=== PATIENT | male | born 1990 | race African-American/Black ===

== ENCOUNTER 2018-11-28 04:34 | Emergency (ER) | payer OTHER ==
--- NOTE | 2018-11-28 04:52 | ER Document Report ---
Addendum entered and electronically signed by GINGER ELLIOTT MD 11/28/18 11:03: Discharge - Discharge Clinical Impression: Agitation, Depressed Condition: Stable Disposition: HOME, SELF-CARE Additional Instructions: You have been evaluated and assessed at [facility] Emergency Department by both the medical and behavioral health teams after presenting for and are now deemed appropriate for discharge. While in the ED, you received an initial medical screening, lab work, EKG, medications, direct staff observation, clinical eval uation, physician assessment, and outpatient resources. You were cleared from both services and record review revealed a history of depression and treatment non-compliance for your symptoms. You are encouraged to develop coping skills through regular therapy and maintain compliance with your prescribed medication. You are scheduled for therapy at [facility] on 11/30/18 @1500 and medication management on 12/10/18. Mobile crisis resources were provided to you for when these situations arise. Depression Your evaluation reveals that you have mental depression. While symptoms may be vague, they often include disturbance of sleep, fatigue, loss of appetite, and general loss of interest in life. While depression may be a side effect of drugs, or a reaction to a major change in your life, many cases have no known cause. If depression is acute, and related to a major loss in your life, you can expect it to clear completely with time. If you have been depressed a long time, are prone to repeated bouts of depression or low mood, or have been thinking of suicide, get help. Depression can be treated with anti-depressant medication and counselling. Long-term depression will often take a few weeks to clear, even with appropriate medication. Follow-up care is important. Contact your physician, the hospital emergency center, crisis line, or your counsellor if you are losing control or having self-destructive thoughts. Antidepressants Antidepressant medication is used to treat severe depression, particularly when accompanied by sleep disturbance and weight loss. The medication is often helpful for other problems such as bed-wetting, anorexia, and migraine headaches. The full benefit of this medication may not be apparent for a few weeks. Be patient. If there is no improvement after three weeks, an increase in dosage or change in type of medicine will probably help you. This medicine may cause drowsiness, especially with the first dose. Do not operate machinery or drive until all side effects have resolved. Do not combine with alcohol. Other common side effects include dry mouth and eyes. In older persons, antidepressants can occasionally cause urinary retention, constipation, and trouble focusing the eyes. Counseling Services It has been recommended that you seek professional counseling to assist you with the stresses that you are experiencing. Most people at some time in their lives experience personal problems with which they need help. Pride and feeling that one can't be helped keep a lot of people from the benefits of counseling. DEPRESSION: Your evaluation reveals that you have mental depression. While symptoms may be vague, they often include disturbance of sleep, fatigue, loss of appetite, and general loss of interest in life. While depression may be a side effect of drugs, or a reaction to a major change in your life, many cases have no known cause. If depression is acute, and related to a major loss in your life, you can expect it to clear completely with time. If you have been depressed a long time, are prone to repeated bouts of depression or low mood, or have been thinking of suicide, get help. Depression can be treated with anti-depressant medication and counselling. Long-term depression will often take a few weeks to clear, even with appropriate medication. Follow-up care is important. SUICIDAL IDEATION: Suicidal ideation is a common medical term for thoughts about suicide, which may be as detailed as a formulated plan, without the suicidal act itself. Although most people who undergo suicidal ideation do not commit suicide, some go on to make suicide attempts. The range of suicidal ideation varies greatly from fleeting to detailed planning, role playing, and unsuccessful attempts. While thoughts about suicide are common, most people do not carry out serious actions to commit suicide. Based upon your evaluation and discussion with you, we do not believe you are currently at risk to act upon your thoughts of suicide. You have agreed to return to the Emergency Department, at any time, if you feel inclined to act upon your suicidal thoughts. FOLLOW-UP CARE: If you have been referred to a physician for follow-up care, call the physicians office for an appointment as you were instructed or within the next two days. If you experience worsening or a significant change in your symptoms, notify the physician immediately or return to the Emergency Department at any time for re-evaluation. YOU WERE GIVEN A PRESCRIPTION FOR THE PROZAC AND VISTARIL TO LAST UNTIL YOUR NEXT APPOINTMENT ON DEC 10, 2018. START TAKING THE MEDICATION TOMORROW. YOU WERE GIVEN TODAY'S DOSE IN THE EMERGENCY ROOM BEFORE YOU WERE DISCHARGED. Prescriptions: Fluoxetine HCl [Prozac 20 mg Capsule] 20 mg PO DAILY #14 capsule Hydroxyzine Pamoate [Vistaril 25 mg Capsule] 25 mg PO DAILY #14 capsule Referrals: [facility] [Provider Group] - Follow up as needed Addendum entered and electronically signed by MARGOT ROSARIO LPCA 11/28/18 10:58: Discharge - Discharge Clinical Impression: Agitation, Depressed Condition: Stable Disposition: HOME, SELF-CARE Additional Instructions: You have been evaluated and assessed at [facility] Emergency Department by both the medical and behavioral health teams after presenting for and are now deemed appropriate for discharge. While in the ED, you received an initial medical screening, lab work, EKG, medications, direct staff observation, clinical evaluation, physician assessment, and outpatient resources. You were cleared from both services and record review revealed a history of depression and treatment non-compliance for your symptoms. You are encouraged to develop coping skills through regular therapy and maintain compliance with your prescribed medication. You are scheduled for therapy at [facility] on 11/30/18 @1500 and medication management on 12/10/18. Mobile crisis resources were provided to you for when these situations arise. Depression Your evaluation reveals that you have mental depression. While symptoms may be vague, they often include disturbance of sleep, fatigue, loss of appetite, and general loss of interest in life. While depression may be a side effect of drugs, or a reaction to a major change in your life, many cases have no known cause. If depression is acute, and related to a major loss in your life, you can expect it to clear completely with time. If you have been depressed a long time, are prone to repeated bouts of depression or low mood, or have been thinking of suicide, get help. Depression can be treated with anti-depressant medication and counselling. Long-term depression will often take a few weeks to clear, even with appropriate medication. Follow-up care is important. Contact your physician, the hospital emergency center, crisis line, or your counsellor if you are losing control or having self-destructive thoughts. Antidepressants Antidepressant medication is used to treat severe depression, particularly when accompanied by sleep disturbance and weight loss. The medication is often helpful for other problems such as bed-wetting, anorexia, and migraine headaches. The full benefit of this medication may not be apparent for a few weeks. Be patient. If there is no improvement after three weeks, an increase in dosage or change in type of medicine will probably help you. This medicine may cause drowsiness, especially with the first dose. Do not operate machinery or drive until all side effects have resolved. Do not combine with alcohol. Other common side effects include dry mouth and eyes. In older persons, antidepressants can occasionally cause urinary retention, constipation, and trouble focusing the eyes. Counseling Services It has been recommended that you seek professional counseling to assist you with the stresses that you are experiencing. Most people at some time in their lives experience personal problems with which they need help. Pride and feeling that one can't be helped keep a lot of people from the benefits of counseling. DEPRESSION: Your evaluation reveals that you have mental depression. While symptoms may be vague, they often include disturbance of sleep, fatigue, loss of appetite, and general loss of interest in life. While depression may be a side effect of drugs, or a reaction to a major change in your life, many cases have no known cause. If depression is acute, and related to a major loss in your life, you can expect it to clear completely with time. If you have been depressed a long time, are prone to repeated bouts of depression or low mood, or have been thinking of suicide, get help. Depression can be treated with anti-depressant medication and counselling. Long-term depression will often take a few weeks to clear, even with appropriate medication. Follow-up care is important. SUICIDAL IDEATION: Suicidal ideation is a common medical term for thoughts about suicide, which may be as detailed as a formulated plan, without the suicidal act itself. Although most people who undergo suicidal ideation do not commit suicide, some go on to make suicide attempts. The range of suicidal ideation varies greatly from fleeting to detailed planning, role playing, and unsuccessful attempts. While thoughts about suicide are common, most people do not carry out serious actions to commit suicide. Based upon your evaluation and discussion with you, we do not believe you are currently at risk to act upon your thoughts of suicide. You have agreed to return to the Emergency Department, at any time, if you feel inclined to act upon your suicidal thoughts. FOLLOW-UP CARE: If you have been referred to a physician for follow-up care, call the physicians office for an appointment as you were instructed or within the next two days. If you experience worsening or a significant change in your symptoms, notify the physician immediately or return to the Emergency Department at any time for re-evaluation. Referrals: [facility] [Provider Group] - Follow up as needed Original Note: ED General - General Stated Complaint: IVC WITH PAPERS Time Seen by Provider: 11/28/18 04:40 Notes: Patient is a 28-year-old male who was brought in on found to commit paperwork due to angry outbursts. According to the IVC papers the patient is aggressive and easily agitated. He has had previous history of aggression as well as suicidal thoughts. Patient says that tonight he got angry and punched a wall. He says that he "flipped out". Patient says that he is on medication for this but has not been taking it recently received was hoping that he can control himself. He says he has chronic depression but denies being suicidal. He denies wanting to kill anybody but says he would be willing to hurt anybody who "steps to me". He denies any pain in his hand or wrist from punching the wall. He says he has no other chronic medical problems and does not take medications for any other reason. He cannot remember the name of the medication that he supposed to be on. He gets that through the [place]. TRAVEL OUTSIDE OF THE [place] IN LAST 30 DAYS: No - Related Data Allergies/Adverse Reactions: iodine Allergy (Verified 05/30/16 19:34) Past Medical History - Social History Smoking Status: Current Every Day Smoker Frequency of alcohol use: None Drug Abuse: None Family History: Reviewed & Not Pertinent Psychiatric Medical History: Reports: Hx Depression Review of Systems - Review of Systems Notes: My Normal Review Basic REVIEW OF SYSTEMS: CONSTITUTIONAL : Denies fever, chills, or sweats. Denies recent illness. EENT: Denies eye, ear, throat, or mouth pain or symptoms. Denies nasal or sinus congestion. RESPIRATORY: Denies cough, cold, or chest congestion. Denies shortness of breath, difficulty breathing, or wheezing. GASTROINTESTINAL: Denies abdominal pain. Denies nausea, vomiting, or diarrhea. MUSCULOSKELETAL: Denies neck or back pain or joint pain or swelling. SKIN: Denies rash or skin lesions. NEUROLOGICAL: Denies altered mental status or loss of consciousness. Denies headache. Denies weakness or paralysis or loss of use of either side. Denies problems with gait or speech. Denies sensory or motor loss. PSYCHIATRIC: Agitated and aggressive. some depression ALL OTHER SYSTEMS REVIEWED AND NEGATIVE. Physical Exam - Vital signs Vitals: Temp Pulse Resp BP Pulse Ox 98.1 F 78 20 138/78 H 98 11/28/18 05:22 11/28/18 05:22 11/28/18 05:22 11/28/18 05:22 11/28/18 05:22 - Notes Notes: General Appearance: Well nourished, alert, cooperative, no acute distress, no obvious discomfort. Well-appearing. Vitals: reviewed, See vital signs table. Head: no swelling or tenderness to the head Eyes: PERRL, EOMI, Conjuctiva clear Mouth: No decreasd moisture Lungs: No wheezing, No rales, No rhonci, No accessory muscle use, good air exchange bilaterally. Heart: Normal rate, Regular rythm, No murmur, no rub Abdomen: Normal BS, soft, No rigidity, No abdominal tenderness, No guarding, no rebound, no abdominal masses, no organomegaly Extremities: strength 5/5 in all extremities, good pulses in all extremities, no swelling or pain to the right hand. No pain to palpation of right hand wrist or elbow. Left hand has no signs of trauma no pain to palpation. Skin: Few small professional abrasions on right hand from punching wall. Neuro: speech clear, oriented x 3, normal affect, responds appropriately to questions. Psychiatric: Patient is calm and answers all my questions appropriately. Makes good eye contact. He has good organized thought process and answers. Course - Re-evaluation Re-evalutation: 11/28/18 06:26 Patient is medically stable for psychiatric evaluation. Dictation of this chart was performed using voice recognition software; therefore, there may be some unintended grammatical errors. - Vital Signs Vital signs: Temp Pulse Resp BP Pulse Ox 98.1 F 78 20 138/78 H 98 11/28/18 05:22 11/28/18 05:22 11/28/18 05:22 11/28/18 05:22 11/28/18 05:22 - Laboratory Result Diagrams: 11/28/18 05:06 11/28/18 05:06 Laboratory results interpreted by me: 11/28/18 11/28/18 04:53 05:06 Glucose 129 H Urine Protein 30 H Salicylates < 1.0 L Acetaminophen < 10 L - EKG Interpretation by Me Additional EKG results interpreted by me: 11/28/18 05:16 EKG is reviewed and interpreted by me. EKG shows sinus rhythm with a rate of 71 bpm. Mildly elevated concave up ST segment elevation has no early repolarization abnormality. MO interval, QRS duration, QT intervals are within normal range. Old EKG for comparison is from August 04, 2016. Discharge - Discharge Clinical Impression: Agitation Condition: Stable
[2018-11-28 05:27] LABS: ABSOLUTE LYMPHOCYTES (AUTO) 2.1 10^3/uL (0.5-4.7); ABSOLUTE MONOCYTES (AUTO) 0.4 10^3/uL (0.1-1.4); ABSOLUTE NEUT (AUTO) 3.2 10^3/uL (1.7-8.2); BASOPHILS % (AUTO) 0.1 % (0-2); EOSINOPHILS % (AUTO) 0.8 % (0-6); HEMATOCRIT 45.2 % (37.9-51.0); HEMOGLOBIN 15.5 g/dL (13.5-17.0); LYMPHOCYTES % (AUTO) 36.5 % (13-45); MEAN CORPUSCULAR HEMOGLOBIN 31.2 pg (27.0-33.4); MEAN CORPUSCULAR HGB CONC 34.4 g/dL (32.0-36.0); MEAN CORPUSCULAR VOLUME 91 fl (80-97); MONOCYTES % (AUTO) 7.6 % (3-13); PLATELET COUNT 300 10^3/uL (150-450); RED BLOOD COUNT 4.98 10^6/uL (4.35-5.55); RED CELL DISTRIBUTION WIDTH 13.3 % (11.5-14.0); TOTAL CELLS COUNTED % (AUTO) 100 %; WHITE BLOOD COUNT 5.8 10^3/uL (4.0-10.5)
[2018-11-28 05:41] LABS: APPEARANCE,URINE CLEAR; BILIRUBIN,URINE NEGATIVE (NEGATIVE); COLOR,URINE YELLOW; GLUCOSE, URINE NEGATIVE (NEGATIVE); KETONES,URINE NEGATIVE (NEGATIVE); LEUKOCYTE ESTERASE,URINE NEGATIVE (NEGATIVE); NITRITE,URINE NEGATIVE (NEGATIVE); PROTEIN,URINE 30 mg/dL (NEGATIVE); URINE SPECIFIC GRAVITY 1.017; UROBILINOGEN,URINE NEGATIVE mg/dL (<2.0)
[2018-11-28 05:43] LABS: ALANINE AMINOTRANSFERASE 41 U/L (21-72); ALBUMIN 4.9 g/dL (3.5-5.0); ALKALINE PHOSPHATASE 61 U/L (38-126); ANION GAP 11 (5-19); ASPARTATE AMINO TRANSFERASE 32 U/L (17-59); BILIRUBIN,DIRECT 0.3 mg/dL (0.0-0.4); BILIRUBIN,TOTAL 0.7 mg/dL (0.2-1.3); BLOOD UREA NITROGEN 11 mg/dL (7-20); CARBON DIOXIDE 25 mmol/L (22-30); CHLORIDE 104 mmol/L (98-107); GLUCOSE 129 mg/dL (75-110); POTASSIUM 3.9 mmol/L (3.6-5.0); SODIUM 139.9 mmol/L (137-145); TOTAL PROTEIN 8.1 g/dL (6.3-8.2)
[2018-11-28 05:48] LABS: ACETAMINOPHEN < 10 ug/mL (10-30); ALCOHOL < 10 mg/dL (NONE DETECTED); SALICYLATE < 1.0 mg/dL (2.0-20.0)
[2018-11-28 05:52] LABS: URINE AMPHETAMINES SCREEN NEGATIVE; URINE BARBITURATES SCREEN NEGATIVE; URINE BENZODIAZEPINES SCREEN NEGATIVE; URINE COCAINE SCREEN NEGATIVE; URINE MARIJUANA (THC) SCREEN UNCONFIRMED POSITIVE; URINE METHADONE SCREEN NEGATIVE; URINE PHENCYCLIDINE SCREEN NEGATIVE
[2018-11-28] MEDS ORDERED: HYDROXYZINE PAMOATE 25 MG CAPSULE PO ONE (10:54)
[2018-11-28] MEDS ORDERED: FLUOXETINE HCL 20 MG CAPSULE PO ONE (10:54)
[2018-11-28 11:17] VITALS: BP 127/80
--- NOTE | 2018-11-28 11:23 | PSYCHOLOGICAL NOTE ---
Psych Note - Psych Note Date seen by psych provider: 11/28/18 Time seen by psych provider: 07:15 Psych Note: Reason for consult:SI, HI Contact Permissions: Nimo Hinson [phone] Patient is a 28 yo male presenting to the ED with LE for SI/HI. Patient had an argument with his resulting in him punching a hole in the wall and being aggressive with LE. Chart review shows he was seen 05/2016 and 07/2016 [facility] for depression with multiple gestures and aggression. Patient today reports that he and his argued/he flipped out/can't hold it in any longer/and now I'm here". He explains that he gets easily irritated and tries to hold it all in. Patient candido by walking away or sleeping. He admits punching a hole in the wall yesterday and sometimes feeling so angry that he wants to hurt somebody. He has not hurt anyone in the past and does not want to hurt anyone now. He admits suicide gestures in 2016 and reports one week in [facility] for depression, SI, aggression. Patient discontinued his medication one year ago because he "wanted to see if I could do it on my own" and admits his depression gets "worse every day" descrivbing sx's as : get irritated at a lot of things, just want to be left alone don't want to talk to nobody, weight loss, insomnia, fatigue, poor concentration, and feelings of shame and worthlessness. Patient relays, I have an anger problem and need help. He attempted recently increased therapy from 6x/year to 2x/month and saw his prescriber at the [place] [facility] on 10/20/18 but missed his next appointment. He has been waiting for his medication to come in the mail. His toxicology was positive for THC. 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. Ms. Hinson reports patient has been struggling with his depression for 2-3 years now and stopped taking his medication about a year ago because was tired of feeling like a zombie. His depression has worsened aeb/has no idea how to control his anger anymore/goes into rages at any little thing/shuts down/isolates a wall/ In last 3 weeks patient has increased stress with work, school loans, and is not getting along with his mother. "The last time he was like this he tried to commit suicide. He makes statements I want to end it/why am I still alive/tried to antagonize LE last night. Patient is alert and oriented x 4. Mood is "get irritated at a lot of things" with irritable affect aeb kept eyes closed and arms crossed. Patient denies SI, HI, and AV/H, does not appear to be responding to internal stimuli, and no delusions were noted. Conversational speech was soft/minimal/clipped. Eye contact was poorly maintained. Thought processes were linear, organized, and rational. Intellectual abilities were estimated within the average range. Attention/concentration was short "I don't want you to ask me anymore questions" while, insight, judgment, and impulse control were poor. Diagnosis: 296.30 (F33.9) Major Depressive Disorder, Recurrent Episode, Unspecified Medication recommendations as per psychiatric provider, Dr. Car are as follows: Start Prozac 20mg daily Vistaril 25mg daily Patient is psychiatrically clear from acute psychiatric services and recommended to rescind IVC due to patient is not at risk of harm to self or others aeb Patient denies/endorses SI, HI, and AV/H, does not appear to be responding to internal stimuli, and no delusions were noted. Patient is a 28 yo male with a hx of depression who discontinued medication regimen approximately one year ago resulting in his depression worsening. He verbalizes interest in resuming his medication regimen and [facility] but missed his next appointment and failed to call in for his refill. Patient received psycho-education about the importance of medication compliance and risks of inconsistent use or abrupt cessation. Plan is to discharge to home/self-care with as patient verbalizes he will take his medication daily as prescribed and will present to his therapy appointment on 11/30/18 at 1500 and medication appointment on 12/10/18 at the [place] [facility] in [place]. Coordinated care with patient's so that she is aware of appointments and medication and can provide support to patient. Patient and his were provided with [facility] contact information and verbalized understanding about how to use the service if needed. Consulted Dr. Goetz in the care and treatment of this patient and ED physician who is in agreement with disposition and recommendation.
--- NOTE | 2018-11-28 17:54 | EKG REPORT ---
SEVERITY:- ABNORMAL ECG - SINUS RHYTHM ST ELEVATION SUGGESTS PERICARDITIS : Confirmed by: Luzma Sotelo 28-Nov-2018 17:53:52
== END 2018-11-28 11:17 | disposition home or self-care (01) ==
LOC: ER 04:34
DX: F33.9 Major depressive disorder, recurrent, unspecified (principal); T50.906A Underdosing of unspecified drugs, medicaments and biological substances, initial encounter; Z91.128 Patient's intentional underdosing of medication regimen for other reason; Z91.14 Patient's other noncompliance with medication regimen; R45.6 Violent behavior; R45.1 Restlessness and agitation; F17.200 Nicotine dependence, unspecified, uncomplicated
CPT/HCPCS: 36415; 80053; 80307; 81001; 85025; 93005; 93010; 99285